=== PATIENT | male | born 1980 | race African-American/Black ===

== ENCOUNTER 2025-06-24 08:14 | Emergency (ER) | payer SELFPAY ==
[~2025-06-24] VITALS: Ht 172.7 cm; Wt 70.0 kg
[2025-06-24 08:21] VITALS: BP 132/86; PULSE 73; RESP 18; TEMP 36.9; O2SAT 99
== END 2025-06-24 09:15 | disposition left against medical advice (07) ==
LOC: ER 08:14
DX: F10.129 Alcohol abuse with intoxication, unspecified (principal); Z53.21 Procedure and treatment not carried out due to patient leaving prior to being seen by health care provider; Y90.9 Presence of alcohol in blood, level not specified
CPT/HCPCS: 99281